=== PATIENT | female | born 1940 | race Two or more races ===

== ENCOUNTER 2020-05-28 06:25 | Day surgery (SDC) | payer OTHER ==
[~2020-05-28 06:25] MED LIST: SYNTHROID PO
== END 2020-05-28 17:00 | disposition home or self-care (01) ==
LOC: CIR.AMB 06:25
PROVIDERS: ATTEND Obstetrics & Gynecology
DX: N84.0 Polyp of corpus uteri (principal)

== ENCOUNTER 2021-05-19 10:04 | Outpatient (CLI) | payer OTHER | END 2021-06-02 14:57 | disposition home or self-care (01) | LOC: MRI 10:04 | PROVIDERS: ATTEND Orthopaedic Surgery | DX: M17.12 Unilateral primary osteoarthritis, left knee (principal); M25.462 Effusion, left knee; M25.561 Pain in right knee; M25.562 Pain in left knee; S83.212A Bucket-handle tear of medial meniscus, current injury, left knee, initial encounter | CPT/HCPCS: 73721 ==